=== PATIENT | female | born 1940 | race Caucasian/White ===

== ENCOUNTER 2018-08-13 08:27 | Outpatient (CLI) | payer OTHER ==
[~2018-08-13] VITALS: Ht 154.9 cm; Wt 83.5 kg
[2018-08-13] VITALS (7 sets, daily range): BP systolic 111–144; BP diastolic 52–78
[~2018-08-13 08:27] MED LIST: GLIM1TAB2 PO; METF500T16 PO; SIMV10TA3 PO
[2018-08-13] MEDS ORDERED: FAMO20TA5 PO (09:00)
[2018-08-13] MEDS ORDERED: FERR325T14 PO (09:00)
[2018-08-13] MEDS ORDERED: POTA10TA12 PO (09:00)
[2018-08-13] MEDS ORDERED: LEVO5TAB2 PO (09:00)
[2018-08-13] MEDS ORDERED: FURO20TA3 PO (09:00)
[2018-08-13] MEDS ORDERED: MIDAZOLAM HCL/PF 5 MG/5 ML VIAL. IV ONE (10:00)
[2018-08-13] MEDS ORDERED: LIDOCAINE 1%/EPI 1:100,000 20 ML VIAL. IJ ONE (10:00)
[2018-08-13] MEDS ORDERED: fentaNYL PF VIAL 100 MCG/2 ML VIAL IV ONE (10:00)
[2018-08-13] MEDS ORDERED: fentaNYL PF VIAL 100 MCG/2 ML VIAL ONE (10:02)
[2018-08-13] MEDS ORDERED: MIDAZOLAM HCL/PF 5 MG/5 ML VIAL. ONE (10:02)
[2018-08-13 10:14] LABS: BASO # 0.1 x10^3/uL (0.0-0.2); BASO % 1 % (0-3); EOS # 0.2 x10^3/uL (0.0-0.7); EOS % 2 % (0-3); HEMATOCRIT 33.9 % (36.0-47.0); HEMOGLOBIN 11.7 g/dL (12.0-15.5); LYMPH # 0.7 x10^3/uL (1.0-4.8); LYMPH % 7 % (24-48); MEAN CORPUSCULAR HEMOGLOBIN 29 pg (25-35); MEAN CORPUSCULAR HGB CONC 34 g/dL (31-37); MEAN CORPUSCULAR VOLUME 85 fL (79-100); MONO # 0.5 x10^3/uL (0.0-1.1); MONO % 5 % (0-9); NEUT # 8.9 x10^3uL (1.8-7.7); NEUT % 85 % (31-73); PLATELET COUNT 136 x10^3/uL (140-400); PROTHROMBIN TIME PATIENT 13.1 SEC (11.7-14.0); RED BLOOD COUNT 3.98 x10^6/uL (3.50-5.40); RED CELL DISTRIBUTION WIDTH 14.8 % (11.5-14.5); WHITE BLOOD COUNT 10.4 x10^3/uL (4.0-11.0)
[2018-08-13] MEDS ORDERED: LIDOCAINE 1%/EPI 1:100,000 20 ML VIAL. ONE (10:23)
--- NOTE | 2018-08-13 10:49 | PDOC ---
MODERATE SEDATION ASSESSMENT RISKS/ALTERNATIVES Risks/Alternatives Risks and alternatives of this type of sedation and procedure discussed with: RISK/ALTERNATIVES: Patient H & P ON CHART H & P H & P on chart and reviewed for co-morbid conditions and appropriate labs. H&P ON CHART: Yes STATUS PREG STATUS ASSESSED: Yes MEDS/ALLERGIES REVIEWED Meds/Allergies Reviewed Medications and Allergies including time and route of recently administered narcotics and sedatives. MEDS/ALLERGIES REVIEWED: Yes ASA RATING ASA RATING: II AIRWAY ASSESSMENT Airway Assessment Airway patency, oral function limitations, presence of caps, crowns, dentures, partials, and ability to extend neck assessed. AIRWAY ASSESSMENT: Yes MALLAMPATI SCORE MALLAMPATI SCORE: II PRE-SEDATION ASSESSMENT PRE-SEDATION ASSESSMENT: Yes JAILENE ROTHMAN MD August 13, 2018 10:49
--- NOTE | 2018-08-13 13:00 | NUR ---
Discharge Note: ARYA VILLANUEVA Discharge instructions and discharge home medications reviewed with Patient and a copy given. All questions have been answered and understanding verbalized. The following instructions and handouts were given: Huan cath placement and after care instructions; as well as post sedation instructions given. Discontinued lines and drains: Left FA IV, tip intact. Patient discharged to home with son and daughter via car.
--- NOTE | 2018-08-13 15:21 | RAD ---
Procedure: Ultrasound and fluoroscopically guided placement of right internal jugular power port.. 08/13/2018 3:17 PM Clinical Indication: ENDOMETRIAL CX Sedation: [id number] sedation time: 42 minutes. Conscious sedation was provided throughout the case as the patient was monitored by a qualified independent observer throughout the time of sedation. Please refer to the medical record for exact doses of medications utilized to achieve moderate sedation. Fluoroscopy time: 0.8 minutes Dose area product: 1 Gycm2 Consent: The procedure was explained in its entirety to the patient or the patients designated instruments sales representative by a member of the treatment team, including a discussion of the risks, benefits and commonly accepted alternatives to the procedure, as well as the expected consequences of no therapy whatsoever. Discussion of the risks included, but was not limited to, those that are most frequent and those that are rare but possibly severe or life-threatening, as well as the possibility of unforeseen complications. Technique and Findings: All elements of maximal sterile barrier technique including the use of a cap, mask, sterile gown, sterile gloves, large sterile sheet, appropriate hand hygiene, and 2% chlorhexidine for cutaneous antisepsis (or acceptable alternative antiseptic per current guidelines) were followed for this procedure.Following informed consent, and a timeout procedure, the patient was prepped and draped in the usual sterile fashion. Ultrasound interrogation of the right neck revealed patency and compressibility of the right internal jugular vein. A 21-gauge micropuncture was then used to gain access to this vein under ultrasound guidance. A hard copy ultrasound image was recorded. The needle was exchanged over a wire for a sheath. A 1 inch incision was made several centimeters inferior to the venotomy site. A catheter was tunneled from this site dermatotomy site in the neck. Catheter was advanced through peel-away sheath such that its tip was in the proximal right atrium with the patient supine. The catheter was trimmed to length and connected to the port reservoir. The port was found to flush and aspirate normally. The wound was closed in layers using 4-0 Vicryl suture. Sterile dressings were applied. Impression: Successful ultrasound and fluoroscopically guided placement of a right internal jugular PowerPort
== END 2018-08-13 13:00 | disposition home or self-care (01) ==
LOC: INTRAD 08:27
PROVIDERS: ATTEND Internal Medicine Hematology & Oncology
DX: C54.1 Malignant neoplasm of endometrium (principal); Z88.5 Allergy status to narcotic agent; Z79.01 Long term (current) use of anticoagulants; Z79.899 Other long term (current) drug therapy
CPT/HCPCS: 36415; 36561; 76937; 77001; 85025; 85610; 85730; 99152; 99153; C1788; C1892; J0696; J2250; J3010; J3490; C1751

== ENCOUNTER → 2019-04-02 | Outpatient (CLI) | payer OTHER ==
[~2019-04-02] VITALS: Ht 160 cm; Wt 68.5 kg
[~2019-04-02] MED LIST changes: +FAMO20TA5 PO; +FERR325T14 PO; +FURO20TA3 PO; +FURO40TA4 PO; -GLIM1TAB2 PO; +GLIM1TAB3 PO; +LEVO5TAB2 PO; +LIDOCAINE 1%/EPI 1:100,000 20 ML VIAL. ONE; +LIDOCAINE 1%/EPI 1:100,000 20 ML VIAL. SQ ONE; +MIDAZOLAM HCL/PF 2 MG/2 ML VIAL. IV ONE; +MIDAZOLAM HCL/PF 2 MG/2 ML VIAL. ONE; +MULT-251 PO; +ONDA8TAB14 PO; +POTA10TA12 PO; +SIMV10TA15 PO; -SIMV10TA3 PO; +SIMV40TA18 PO; +fentaNYL PF VIAL 100 MCG/2 ML VIAL IV ONE; +fentaNYL PF VIAL 100 MCG/2 ML VIAL ONE
[2019-04-02 09:45] LABS: BASO % 1 % (0-3); EOS # 0.2 x10^3/uL (0.0-0.7); EOS % 3 % (0-3); HEMOGLOBIN 9.6 g/dL (12.0-15.5); LYMPH # 0.7 x10^3/uL (1.0-4.8); LYMPH % 15 % (24-48); MEAN CORPUSCULAR HEMOGLOBIN 32 pg (25-35); MEAN CORPUSCULAR HGB CONC 34 g/dL (31-37); MEAN CORPUSCULAR VOLUME 93 fL (79-100); MONO # 0.4 x10^3/uL (0.0-1.1); MONO % 9 % (0-9); NEUT # 3.4 x10^3/uL (1.8-7.7); NEUT % 72 % (31-73); PLATELET COUNT 172 x10^3/uL (140-400); RED BLOOD COUNT 3.01 x10^6/uL (3.50-5.40); RED CELL DISTRIBUTION WIDTH 13.3 % (11.5-14.5); WHITE BLOOD COUNT 4.8 x10^3/uL (4.0-11.0)
[2019-04-02 09:48] VITALS: BP 112/63
[2019-04-02 10:07] LABS: PROTHROMBIN TIME PATIENT 12.5 SEC (11.7-14.0)
[2019-04-02 10:56] VITALS: BP 135/71
[2019-04-02 11:10] VITALS: BP 125/70
[2019-04-02 11:25] VITALS: BP 110/77
[2019-04-02 11:38] VITALS: BP 132/70
--- NOTE | 2019-04-03 09:35 | RAD ---
04/03/2019 7:30 AM Removal of right internal jugular PowerPort. Fluoroscopically assisted. Indication: No longer requires chemotherapy access. Discussion: The risks and benefits of the procedure were discussed the patient. Informed consent was obtained. A timeout procedure was performed. The right chest was prepped and draped using maximum sterile barrier technique. All elements of maximal sterile barrier technique including the use of a cap, mask, sterile gown, sterile gloves, large sterile sheet, appropriate hand hygiene, and 2% chlorhexidine for cutaneous antisepsis (or acceptable alternative antiseptic per current guidelines) were followed for this procedure. 1% lidocaine was administered for local anesthesia. A small incision was made overlying the reservoir. The port and catheter removed intact. This was confirmed with pre and post removal imaging. A sterile dressing was applied. No immediate complications were identified. Total fluoroscopy time: 0.0 MIN Dose area product: 0.2 Gycm2 Impression: Removal of right internal jugular PowerPort
== END ==
LOC: INTRAD 08:49
PROVIDERS: ATTEND Internal Medicine Hematology & Oncology
DX: Z45.2 Encounter for adjustment and management of vascular access device (principal); C54.1 Malignant neoplasm of endometrium; Z79.01 Long term (current) use of anticoagulants
CPT/HCPCS: 36415; 36590; 77001; 85025; 85610; J3490

== ENCOUNTER → 2021-02-01 | Day surgery (SDC) | payer MEDICARE ==
[~2021-02-01] VITALS: Ht 157.5 cm; Wt 86.8 kg
[~2021-02-01] MED LIST changes: +APIX5TAB PO; +CYCL5TAB PO; +FURO-69 PO; -GLIM1TAB3 PO; +GLIM1TAB7 PO; +HYDROmorphone 2 MG/ML VIAL IVP PRN; +IBUP-1027 PO; +IV RINGERS,LACTATED 1000ML 1,000 ML IV SCH; -LIDOCAINE 1%/EPI 1:100,000 20 ML VIAL. ONE; -LIDOCAINE 1%/EPI 1:100,000 20 ML VIAL. SQ ONE; +LIDOCAINE 2% PF 5 ML VIAL. ONE; +MEGE40TA3 PO; -MIDAZOLAM HCL/PF 2 MG/2 ML VIAL. IV ONE; -MIDAZOLAM HCL/PF 2 MG/2 ML VIAL. ONE; +MORPHINE SULFATE 2 MG/ML INJ. IVP PRN; -ONDA8TAB14 PO; +ONDA8TAB17 PO; +OXYC1TAB15 PO; +POTA10TA6 PO; +PROCHLORPERAZINE 10 MG/2 ML VIAL. IVP PRN; +PROPOFOL 10 MG/ML (20ML) VIAL. IV ONE; +TORS20TA2 PO; -fentaNYL PF VIAL 100 MCG/2 ML VIAL IV ONE; +fentaNYL PF VIAL 100 MCG/2 ML VIAL IVP PRN; -fentaNYL PF VIAL 100 MCG/2 ML VIAL ONE
[2021-02-01 12:05] VITALS: BP 118/67
[2021-02-01 13:22] VITALS: BP 109/64
== END | disposition home or self-care (01) ==
LOC: ENDOS 11:21
PROVIDERS: ATTEND Surgery
DX: K92.1 Melena (principal); K63.89 Other specified diseases of intestine; E78.00 Pure hypercholesterolemia, unspecified; I48.91 Unspecified atrial fibrillation; K21.9 Gastro-esophageal reflux disease without esophagitis; I12.9 Hypertensive chronic kidney disease with stage 1 through stage 4 chronic kidney disease, or unspecified chronic kidney disease; E11.22 Type 2 diabetes mellitus with diabetic chronic kidney disease; N18.30 Chronic kidney disease, stage 3 unspecified; Z90.49 Acquired absence of other specified parts of digestive tract; Z90.710 Acquired absence of both cervix and uterus; Z98.890 Other specified postprocedural states; Z79.84 Long term (current) use of oral hypoglycemic drugs; Z79.899 Other long term (current) drug therapy; Z88.5 Allergy status to narcotic agent
CPT/HCPCS: 45378; J2704